=== PATIENT | female | born 1990 | race Hispanic/Latino ===

== ENCOUNTER 2021-04-02 19:25 | Emergency (ER) | payer SELFPAY ==
[~2021-04-02] VITALS: Ht 152.4 cm; Wt 81.6 kg
[2021-04-02] MEDS ORDERED: TETANUS/DIPHTHERIA TOX ADULT 0.5 ML SYR IM ONE ×2 (19:45→20:15)
[2021-04-02] MEDS ORDERED: KEFLEX125 MG/5 M PO (19:56)
== END 2021-04-02 20:16 | disposition home or self-care (01) ==
LOC: FSED 19:32
DX: S61.411A Laceration without foreign body of right hand, initial encounter (principal); W25.XXXA Contact with sharp glass, initial encounter; Y92.008 Other place in unspecified non-institutional (private) residence as the place of occurrence of the external cause
CPT/HCPCS: 90471; 99283

== ENCOUNTER 2021-08-29 19:59 | Emergency (ER) | payer SELFPAY ==
[~2021-08-29] VITALS: Ht 154.9 cm; Wt 83.9 kg
[~2021-08-29 19:59] MED LIST: KEFLEX125 MG/5 M PO
[2021-08-29] MEDS ORDERED: IBUPROFEN 200 MG TAB PO ONE (21:00)
[2021-08-29] MEDS ORDERED: ACETAMINOPHEN 325 MG TAB PO ONE (21:00)
[2021-08-29] MEDS ORDERED: IBUPROFEN IB200 MG PO (21:21)
[2021-08-29] MEDS ORDERED: IBUPROFEN 600 MG TAB ONE (21:25)
[2021-08-29 21:37] VITALS: BP 120/86
== END 2021-08-29 21:37 | disposition home or self-care (01) ==
LOC: FSED 20:54
DX: M94.0 Chondrocostal junction syndrome [Tietze] (principal)
CPT/HCPCS: 71046; 99283

== ENCOUNTER 2024-09-04 16:59 | Emergency (ER) | payer SELFPAY ==
[~2024-09-04] VITALS: Ht 157.5 cm; Wt 83.3 kg
[~2024-09-04 16:59] MED LIST changes: +AUGMENTIN 500-1 EACH PO; +CIPRO500 MG PO; +IBUPROFEN IB200 MG PO; +METRONIDAZOLE500 MG PO; +MUCINEX DM ER1 EAC1 PO; +ONDANSETRON ODT4 MG PO; +PREDNISONE20 MG PO; +PROAIR DIGIHAL90 MCG IH; +ULTRAM 50MG50 MG PO; +VENTOLIN HFA18 GM INH
[2024-09-04] MEDS: SODIUM CHLORIDE 0.9% 1000ML 1,000 ML IV ONE ×3 (18:11→23:01)
[2024-09-04] MEDS: FAMOTIDINE 20 MG/2 ML VIAL IV STA (18:11)
[2024-09-04] MEDS: ONDANSETRON HCL INJ 2MG/ML 2ML 2 MG/ML VIAL IV STA (18:12)
[2024-09-04] MEDS: PROMETHAZINE HCL (IM) 25 MG/ML VIAL IM ONE (22:37)
[2024-09-05] MEDS: ACETAMINOPHEN 325 MG TAB PO ONE (01:31)
[2024-09-05 01:32] VITALS: PULSE 69; RESP 15; TEMP 97.9; O2SAT 100
== END 2024-09-05 03:12 | disposition other institution (70) ==
LOC: FSED 17:15
DX: Z32.01 Encounter for pregnancy test, result positive (principal); O21.0 Mild hyperemesis gravidarum; E86.0 Dehydration; R19.7 Diarrhea, unspecified
CPT/HCPCS: 0223U; 36415; 76700; 76705; 76801; 76830; 80053; 80307; 81003; 81025; 83518; 84702; 85025; 87400; 96374; 96375; 99284; J2405; J2550; J7030

== ENCOUNTER 2024-10-17 18:36 | Emergency (ER) | payer MEDICARE, OTHER ==
[~2024-10-17] VITALS: Ht 157.5 cm; Wt 83.0 kg
[2024-10-17 18:41] VITALS: PULSE 92; RESP 18; TEMP 98.8
[2024-10-17 19:52] LABS: CORONAVIRUS COVID-19 AG NEGATIVE (NEGATIVE); INFLUENZA A AG NEGATIVE (NEGATIVE); INFLUENZA B AG NEGATIVE (NEGATIVE); STREPTOCOCCUS GRP A ANTIGEN NEGATIVE (NEGATIVE)
[2024-10-17] MEDS ORDERED: PREDNISONE20 MG PO (20:03)
[2024-10-17] MEDS ORDERED: AZITHROMYCIN250 MG PO (20:03)
[2024-10-17] MEDS ORDERED: VENTOLIN HFA18 GM INH (20:03)
[2024-10-17 20:52] VITALS: BP 121/68; PULSE 74; RESP 18; TEMP 98.3; O2SAT 98
== END 2024-10-17 20:29 | disposition home or self-care (01) ==
LOC: ER 18:45
DX: R05.9 Cough, unspecified (principal); J06.9 Acute upper respiratory infection, unspecified; R53.81 Other malaise; Z33.1 Pregnant state, incidental
CPT/HCPCS: 83518; 87070; 99283

== ENCOUNTER 2025-05-13 18:27 | Emergency (ER) | payer MEDICARE, OTHER ==
[~2025-05-13] VITALS: Ht 157.5 cm; Wt 86.8 kg
[~2025-05-13 18:27] MED LIST changes: +AZITHROMYCIN250 MG PO
[2025-05-13] MEDS ORDERED: IOPAMIDOL 370 MG/ML 100 ML INFUS..BTL INJ ONE (19:35)
[2025-05-13] MEDS ORDERED: SODIUM CHLORIDE 0.9% 100 ML ONE (19:35)
[2025-05-13 22:12] VITALS: PULSE 67; RESP 16; TEMP 98.6
[2025-05-13 22:13] VITALS: BP 122/79; PULSE 67; RESP 16; TEMP 98.6; O2SAT 98
== END 2025-05-13 22:16 | disposition home or self-care (01) ==
LOC: FSED 18:33
DX: R07.89 Other chest pain (principal)
CPT/HCPCS: 71260; 80053; 84484; 85025; 99284; J7050; Q9967; 93005